=== PATIENT | male | born 1940 | race Caucasian/White ===

== ENCOUNTER 2018-02-17 22:32 | Inpatient (IN) ==
--- NOTE | 2018-02-17 23:01 | Emergency Department Note ---
Disposition Clinical Impression: Left ventricular thrombus Disposition: Admitted As Inpatient Condition: Good Time of Disposition: 23:48 Recheck wound or abnormal lab - General Chief Complaint: ED Recheck/Abnormal Lab/Rx Stated Complaint: blood clot left ventrical Time Seen by Provider: 02/17/18 22:34 Source: patient, EMS Mode of arrival: EMS Limitations: no limitations Nursing Notes Reviewed: Yes Vital Signs Reviewed: Yes - History of Present Illness HPI Narrative: 77-year-old male history of COPD on 2 liter home oxygen supplementation presents to emergency department with abnormal echocardiogram. Patient is from nursing facility. Patient is not aware of why the test was performed. The test was performed earlier today which showed filling defect in the left ventricle hui rn for thrombus. No history of any blood clots. Patient does not take any anticoagulants. Patient states he is at baseline short of breath. He has been experiencing a cough for the past week. Denies any chest pain. Denies any syncope, lightheadedness or fever. Patient has a history of aortic aneurysm where he had a recent ultrasound performed earlier this month with a 5.2 cm aneurysmal sac. - Related Data Home Medications Medication Instructions Recorded Confirmed Acetaminophen [Tylenol] 650 mg PO Q6H PRN 10/31/17 10/31/17 Aspirin [Lo-Dose Aspirin EC] 81 mg PO DAILY 10/31/17 10/31/17 Atorvastatin [Lipitor] 40 mg PO HS 10/31/17 10/31/17 Cholecalciferol (Vitamin D3) 2,000 unit PO DAILY 10/31/17 10/31/17 [Vitamin D] Finasteride [Proscar] 5 mg PO DAILY 10/31/17 10/31/17 Furosemide [Lasix] 20 mg PO DAILY 10/31/17 10/31/17 Gabapentin [Neurontin] 600 mg PO TID 10/31/17 10/31/17 GuaiFENesin/Dextromethorphan 1 each PO DAILY PRN 10/31/17 10/31/17 [Fenesin Dm Ir Tablet] HYDROcodone/Acet 5/325 mg [[place] 1 tab PO Q6H PRN 10/31/17 10/31/17 5-325 mg] Levothyroxine Sodium [Tirosint] 100 mcg PO DAILY 10/31/17 10/31/17 Magnesium Hydroxide [Milk of 400 mg PO DAILY PRN 10/31/17 10/31/17 Magnesia] Metoprolol Succinate [Toprol Xl] 25 mg PO DAILY 10/31/17 10/31/17 Polyvinyl Alcohol [Artificial 1 drop OP Q6H PRN 10/31/17 10/31/17 Tears] PrednisoLONE [Millipred] 5 mg PO Q48H 10/31/17 10/31/17 PrednisoLONE [Millipred] 10 mg PO Q48H 10/31/17 10/31/17 Primidone [Mysoline] 50 mg PO BID 10/31/17 10/31/17 Quetiapine Fumarate [SEROquel] 100 mg PO HS 10/31/17 10/31/17 Sennosides/Docusate Sodium [Senna 2 each PO BID 10/31/17 10/31/17 Plus] Tamsulosin HCl [Flomax] 0.4 mg PO HS 10/31/17 10/31/17 Umeclidinium [place] [Incruse 1 puff IH DAILY 10/31/17 10/31/17 Ellipta] Venlafaxine XR (24 HR) [Effexor XR] 187.5 mg PO DAILY 10/31/17 10/31/17 Allergies Allergy/AdvReac Type Severity Reaction Status Date / Time No Known Allergies Allergy Verified 10/31/17 22:02 All systems ED: reviewed and negative except as stated. Review of Systems: As Per HPI Constitutional: Denies: fever, chills ENT ED: Reports: congestion Cardiovascular: Denies: chest pain Respiratory: Reports: cough, dyspnea Gastrointestinal: Denies: abdominal pain, nausea, vomiting Genitourinary: Denies: dysuria Musculoskeletal: Denies: back pain, neck pain Integumentary: Denies: rash, abrasion Neurological: Denies: headache, weakness, numbness Psychiatric: Reports: anxiety. Denies: depression Endocrine: Denies: fatigue Past Medical History - Past Medical History Attestation: Yes The following information was validated with the patient. Source: patient Medical history: Reports: aortic aneurysm, arthritis, COPD, dementia, diabetes, hyperlipidemia, hypertension, thyroid disease, other Surgical history: Reports: other (Aortic aneurysm repair) Psychiatric history: Reports: anxiety, depression, schizophrenia - Social History Smoking Status: Current every day smoker Smokeless Tobacco Status: No (1 PPD) Alcohol use: Reports: occasionally Drug use: Reports: none Physical Exam - General Limitations: no limitations General appearance: alert, in no apparent distress, obese - Head Head exam: atraumatic, normocephalic, normal inspection - Eye Eye exam: Present: normal appearance, PERRL, EOMI - ENT ENT exam: normal exam, normal oropharynx, mucous membranes moist - Neck Neck exam: Present: normal inspection, full ROM, trachea midline - Chest Chest inspection: Present: normal inspection, symmetric chest wall rise - Respiratory Respiratory exam: Present: normal lung sounds bilaterally. Absent: respiratory distress, wheezes - Cardiovascular Cardiovascular exam: Present: regular rate, normal rhythm, normal heart sounds. Absent: systolic murmur, diastolic murmur - Abdominal Exam Abdominal exam: Present: soft (Obese), Non-Tender, normal bowel sounds. Absent: tenderness, distention, guarding, rebound, rigidity - Extremities Exam Extremities exam: Present: normal inspection, full ROM, normal capillary refill. Absent: tenderness, pedal edema, calf tenderness - Back Exam Back exam: Present: normal inspection, full ROM. Absent: tenderness, CVA tenderness (R), CVA tenderness (L) - Neurological Exam Neurological exam: Present: alert, oriented X3 - Psychiatric Psychiatric exam: Present: normal affect, normal mood - Skin Skin exam: Present: warm, dry, intact, normal color. Absent: rash, cyanosis, diaphoresis Course Course Narrative: Patient presents with concern for left ventricular thrombus. He reports baseline shortness of breath without any chest pain abdominal pain her back pain. He has known aortic aneurysm. Will check some basic labs including a chest x-ray given his recent cough. If he is not anemic will plan for anticoagulation and admission. Will also talk to the structural mill supervisor. EV/EV echocardiogram w enhance Impressions: LVEF 45-50%. Moderate left ventricular diastolic dysfunction. Mild concentric left ventricular hypertrophy. Moderate segmental left ventricular systolic dysfunction. There appears to be a filling defect in the left ventricular apex suspicious for a left ventricular thrombus. Normal right ventricular structure and function. Unable to estimate RVSP due to lack of TR jet. No significant valvular dysfunction. Findings communicated with patient's PCP at the [facility], Dr.Jeanette Palacio, for inpatient admission Left Ventricular Wall Motion: Rest Echo Findings The apical inferior, apical anterior, mid anterior, basal anterior, apical septal, mid inferior septal and mid anterior septal cox were hypokinetic. The apex wall was akinetic. All other wall segments showed normal motion. - Reevaluation(s) Reevaluation #1: Trop <0.03. No complaint of chest pain. Currently anticoagulated with Heparin. - Consultations Consultation #1: Spoke with on-call structural mill supervisor Dr. Sims who also read the echocardiogram, recommendation for anticoagulation and admission to the medicine service. His structural mill supervisor is also wear the patient as he made the echocardiogram interpretation. Patient otherwise remains hemodynamically stable at this time. No further orders at this time. Time: 23:07 Consultation #2: Spoke with on-call hospitalist [facility] to admit for possible left ventri cular thrombus. No further orders at this time. Patient will be initiated on heparin drip. He denies any G.I. bleed symptoms. At this time he remains hemodynamically stable without any complaints of chest pain, back pain or abdominal pain. Time: 00:33 Vital Signs Temperature 98.6 F 02/17/18 22:39 Pulse Rate 67 02/17/18 22:39 Respiratory Rate 22 02/17/18 22:39 Blood Pressure 195/88 02/17/18 22:39 O2 Sat by Pulse Oximetry 98 02/17/18 22:39 Temperature 98.6 F 02/17/18 22:39 Pulse Rate 73 02/18/18 00:58 Respiratory Rate 18 02/18/18 00:35 Blood Pressure 190/94 02/18/18 00:58 O2 Sat by Pulse Oximetry 97 02/18/18 00:39 Oxygen Delivery Oxygen Delivery Room Air Recheck wound or abnormal lab - MDM Narrative Medical decision making narrative: Patient was discussed with my attending physician who agrees with ED management and final disposition. They independently evaluated the patient. Please refer to their attestation to this encounter for additional information. This note was generated by [employer] voice recognition software and as a result grammatical or spelling errors may occur using this program. - Medical Records Medical records reviewed: Yes I reviewed the patient's medical records. - Lab Data Lab results reviewed: Yes I reviewed the patient's lab results. Result diagrams: 02/17/18 23:02 02/17/18 23:02 Lab Results 02/17/18 02/17/18 02/17/18 Range/Units 23:02 23:02 23:02 WBC 9.2 (4.3-11.1) K/mcL RBC 4.18 L (4.19-5.50) M/mcL Hgb 12.4 L (12.9-16.9) g/dL Hct 37.8 (37.5-50.1) % MCV 90.4 (83.0-100.0) fL MCH 29.7 (28.0-33.3) pg MCHC 32.8 (31.6-35.5) g/dL RDW 12.6 (11.5-14.5) % Plt Count 251 (140-400) K/mcL MPV 10.1 (9.4-12.4) fL Immature Gran % 0.3 (0-4) % Seg Neutrophils % 50.4 % Lymphocytes % 36.3 % Monocytes % 9.0 % Eosinophils % 3.6 % Basophils % 0.4 % Neutrophils # 4.7 (1.6-8.9) K/mcL Lymphocytes # 3.4 (0.6-4.6) K/mcL Monocytes # 0.8 (0.0-1.3) K/mcL Eosinophils # 0.3 (0.0-0.6) K/mcL Basophils # 0.0 (0.0-0.2) K/mcL PT 11.0 (9.4-12.1) Seconds INR 1.0 APTT 30.0 (26.0-36.0) Seconds Sodium 136 (136-145) mEq/L Potassium 3.9 (3.5-5.1) mEq/L Chloride 101 (98-107) mEq/L Carbon Dioxide 29 (23-29) mEq/L BUN 17 (8-23) mg/dL Creatinine 0.81 (0.70-1.30) mg/dL Est GFR ( Amer) > 60 (> 60) Est GFR (Non-Af Amer) > 60 (> 60) BUN/Creatinine Ratio 21 (6-26) Glucose 145 H (70-105) mg/dL Calculated Osmolality 286 (280-300) Calcium 9.1 (8.6-10.3) mg/dL Troponin I < 0.03 (< 0.04) ng/mL - Radiology Data Radiology results reviewed: Yes I reviewed the patient's radiology results. Chest X-Ray 02/17/18 22:50 IMPRESSION: Stable chest x-ray. No acute disease. D/ / Edgar Ochoa MD / Edgar Ochoa MD Interpreting Provider: Edgar Ochoa MD - EKG Data EKG attestation: Yes I reviewed and interpreted this EKG. EKG results narrative: EKG performed 2251 normal sinus rhythm 64 beats per minute, normal axis, good R wave progression, no ST elevation, T-wave inversion seen through the septal leads consistent with prior EKG 10/31/2017. No acute ischemic changes. Attestation Statement - Attestation Attestation: I, Esteban Tineo, examined this patient and my medical decision-making was reviewed with the NUT STEAMER/PA/Advanced Practice Nurse/Resident Physician. I agree with the documented findings, disposition and treatment plan as described except to the extent set forth below. 77-year-old male presents emergency Department with concerns of blood clot in the left ventricle. Patient states he had been having shortness of breath with exertion over the past few weeks, and outpatient echo of his heart was performed which showed possible blood clot in his left ventricle. He was sent to the emergency department for anticoagulant and admission to hospital for further evaluation. Patient initially had an elevated blood pressure however he attributed this to anxiety. It improved with observation emergency department. It did elevate again when discussing his symptoms and he was receiving IV. Initial troponin was negative. Patient was started on heparin in the emergency department. He felt comfortable with the plan for admission to hospital.
[2018-02-17 23:12] LABS: Basophils % 0.4 %; Eosinophils # 0.3 K/mcL (0.0-0.6); Eosinophils % 3.6 %; Hematocrit 37.8 % (37.5-50.1); Hemoglobin 12.4 g/dL (12.9-16.9); Immature Granulocytes % 0.3 % (0-4); Lymphocytes # 3.4 K/mcL (0.6-4.6); Lymphocytes % 36.3 %; Mean Corpuscular HGB Conc 32.8 g/dL (31.6-35.5); Mean Corpuscular Hemoglobin 29.7 pg (28.0-33.3); Mean Corpuscular Volume 90.4 fL (83.0-100.0); Mean Platelet Volume 10.1 fL (9.4-12.4); Monocytes # 0.8 K/mcL (0.0-1.3); Neutrophils # 4.7 K/mcL (1.6-8.9); Platelet Count 251 K/mcL (140-400); Red Blood Count 4.18 M/mcL (4.19-5.50); Red Cell Distribution Width 12.6 % (11.5-14.5); Segmented Neutrophils % 50.4 %
[2018-02-17 23:30] LABS: BUN/Creatinine Ratio 21 (6-26); Blood Urea Nitrogen 17 mg/dL (8-23); Calcium 9.1 mg/dL (8.6-10.3); Carbon Dioxide 29 mEq/L (23-29); Chloride 101 mEq/L (98-107); Glucose 145 mg/dL (70-105); Osmolality,Calculated 286 (280-300); Potassium 3.9 mEq/L (3.5-5.1); Sodium 136 mEq/L (136-145); eGFR For Non-African Americans > 60 (> 60)
[2018-02-17] MEDS ORDERED: Heparin 25,000 UNIT/500 ML D5W 25,000 UNIT/500 ML BAG IVC SCH (23:45)
[2018-02-17] MEDS ORDERED: *HR* Heparin 5,000 UNIT/ML VIAL IVP PRN ×2 (23:46)
[2018-02-17] MEDS ORDERED: *HR* Heparin 5,000 UNIT/ML VIAL IVP ONE (23:46)
--- NOTE | 2018-02-18 00:41 | Internal Med History&Physical ---
<Tristan Momin - Last Filed: 02/18/18 02:10> Date of Encounter: 02/18/18 Time of Encounter: 02:05 Internal Medicine - H&P: HPI Chief complaint: Possible LV thrombus on echo History of present illness: Mr. Ferraro is a 77 year old male here for abnomral echocardiogram showing potential LV thrombus with history of AAA, COPD, HTN, hypothyroidism, lumbar spondylosis. Patient has been having increasing SOB and was was given an echocardiogram at [place] yesterday which showed a filling defect in LV that is suspected to be a thrombus. Patient denies new onset CP, palpitations, dyspnea, leg pain. He also denies fever, N/V, malaise, night sweats, syncope, dizziness abdominal pain, changes in urination or stooling. Patient has smoked for 70 years at approximately 1 PPD. He had US one motnh ago showing a 5.2 cm aneurysmal sac. At ED his heart rate was elevated at 190/100 which is higher than his previous visits at 150/90s. EKG shows no acute changes from previous recordings. Troponins were negative x 1. Past Med Surg Social Fam HX - Past Medical History Medical history: aortic aneurysm, arthritis, COPD, dementia, diabetes, hyperlipidemia, hypertension, thyroid disease, other Additional medical history: Parkinson's Psychiatric history: anxiety, depression, schizophrenia - Past Surgical History Surgical History: other (Aortic aneurysm repair) Additional surgical history: AAA REPAIR - Social History Smoking Status: Current every day smoker Smokeless Tobacco Status: No (1 PPD) Alcohol use: occasionally Drug use: none Internal Medicine - H&P: Meds Acetaminophen [Tylenol] 650 mg PO Q6H PRN 10/31/17 [History] Aspirin [Lo-Dose Aspirin EC] 81 mg PO DAILY 10/31/17 [History] Atorvastatin [Lipitor] 40 mg PO HS 10/31/17 [History] Cholecalciferol (Vitamin D3) [Vitamin D] 2,000 unit PO DAILY 10/31/17 [History] Finasteride [Proscar] 5 mg PO DAILY 10/31/17 [History] Furosemide [Lasix] 20 mg PO DAILY 10/31/17 [History] Gabapentin [Neurontin] 600 mg PO TID 10/31/17 [History] GuaiFENesin/Dextromethorphan [Fenesin Dm Ir Tablet] 1 each PO DAILY PRN 10/31/17 [History] HYDROcodone/Acet 5/325 mg [[place] 5-325 mg] 1 tab PO Q6H PRN 10/31/17 [History] Levothyroxine Sodium [Tirosint] 100 mcg PO DAILY 10/31/17 [History] Magnesium Hydroxide [Milk of Magnesia] 400 mg PO DAILY PRN 10/31/17 [History] Metoprolol Succinate [Toprol Xl] 25 mg PO DAILY 10/31/17 [History] Polyvinyl Alcohol [Artificial Tears] 1 drop OP Q6H PRN 10/31/17 [History] PrednisoLONE [Millipred] 5 mg PO Q48H 10/31/17 [History] PrednisoLONE [Millipred] 10 mg PO Q48H 10/31/17 [History] Quetiapine Fumarate [SEROquel] 100 mg PO HS 10/31/17 [History] RX: Primidone [Mysoline] 50 mg PO BID 10/31/17 [History] Sennosides/Docusate Sodium [Senna Plus] 2 each PO BID 10/31/17 [History] Tamsulosin HCl [Flomax] 0.4 mg PO HS 10/31/17 [History] Umeclidinium [place] [Incruse Ellipta] 1 puff IH DAILY 10/31/17 [History] Venlafaxine XR (24 HR) [Effexor XR] 187.5 mg PO DAILY 10/31/17 [History] Allergy/AdvReac Type Severity Reaction Status Date / Time No Known Allergies Allergy Verified 10/31/17 22:02 All Systems PM: A 10-system review of systems was performed and is negative for pertinent findin gs except as documented above in the HPI. - Constitutional Vitals: Temp Pulse Resp BP Pulse Ox 98.6 F 74 18 206/101 97 02/17/18 22:39 02/18/18 00:35 02/18/18 00:35 02/18/18 00:35 02/18/18 00:39 General appearance: Present: A&O X 3, pleasant, no acute distress, answers questions appropriately Exam: . - Head Head exam: Present: atraumatic, normal inspection - Eye Eye exam: Present: EOMI, normal appearance. Absent: conjuntiva pink - Neck Neck exam general surgery: Present: supple, trachea midline - Respiratory Respiratory exam: Present: decreased breath sounds, wheezes. Absent: respiratory distress - Cardiovascular Cardiovascular exam: Present: RRR, +S1, +S2 Additional comments: Irregular beat on EKG noted - GI/Abdominal GI/Abdominal exam: Present: distended, normal bowel sounds. Absent: mass, tenderness - Extremities Exam Extremities exam: Present: normal capillary refill. Absent: calf tenderness, pedal edema, tenderness - Back Exam Back exam: Absent: CVA tenderness (L), CVA tenderness (R) - Neurological Exam Neurological exam: Present: alert, oriented X3. Absent: no focal deficits - Psychiatric Psychiatric exam: Present: normal affect - Skin Skin exam: Present: dry, intact, normal color, warm. Absent: diaphoretic Internal Med - H&P Results - Labs CBC & Chem 7: 02/17/18 23:02 02/17/18 23:02 Labs: Short CBC 02/17/18 Range/Units 23:02 WBC 9.2 (4.3-11.1) K/mcL Hgb 12.4 L (12.9-16.9) g/dL Hct 37.8 (37.5-50.1) % Plt Count 251 (140-400) K/mcL Neutrophils # 4.7 (1.6-8.9) K/mcL BMP 02/17/18 23:02 Sodium 136 Potassium 3.9 Chloride 101 Carbon Dioxide 29 BUN 17 Creatinine 0.81 Glucose 145 H Calcium 9.1 - Impressions ITS Impressions Chest X-Ray 02/17/18 22:50 IMPRESSION: Stable chest x-ray. No acute disease. D/ / Edgar Ochoa MD / Edgar Ochoa MD Interpreting Provider: Edgar Ochoa MD - Assessment and plan (1) DVT prophylaxis Current Visit: No Status: Acute Assessment and plan: On heparin drip (2) Left ventricular thrombus Current Visit: Yes Status: Acute Assessment and plan: 77 YO M presenting with filling defect in LV on echo - suspected LV thrombus - Anticoagulation started - heparin drip - Consult cardiology - Continued home meds Patient had 190/100 BP at ED. Normally in 150/90s. No signs of end organ damage including headache, vision changes, back pain, abdominal pain, new onset CP - Give hydralazine now - Home BP meds started tomorrow morning: metoprolol 25 and furosomide 20 - Time Spent With Patient Total time spent is greater than 50% in coordination of care (as documented) at patient's floor/unit and/or counseling patient: Renetta Martin - Last Filed: 02/18/18 02:31> Date of Encounter: 02/18/18 Internal Medicine - H&P: HPI History of present illness: Mr. Ferraro is a 77 year old male All Systems PM: A 10-system review of systems was performed and is negative for pertinent findings except as documented above in the HPI. - Constitutional Vitals: Temp Pulse Resp BP Pulse Ox 98.6 F 73 18 190/94 97 02/17/18 22:39 02/18/18 00:58 02/18/18 00:35 02/18/18 00:58 02/18/18 00:39 Internal Med - H&P Results - Labs CBC & Chem 7: 02/17/18 23:02 02/17/18 23:02 Labs: Short CBC 02/17/18 Range/Units 23:02 WBC 9.2 (4.3-11.1) K/mcL Hgb 12.4 L (12.9-16.9) g/dL Hct 37.8 (37.5-50.1) % Plt Count 251 (140-400) K/mcL Neutrophils # 4.7 (1.6-8.9) K/mcL BMP 02/17/18 23:02 Sodium 136 Potassium 3.9 Chloride 101 Carbon Dioxide 29 BUN 17 Creatinine 0.81 Glucose 145 H Calcium 9.1 Cardiac Enzymes 02/17/18 Range/Units 23:02 Troponin I < 0.03 (< 0.04) ng/mL - Impressions ITS Impressions Chest X-Ray 02/17/18 22:50 IMPRESSION: Stable chest x-ray. No acute disease. D/ / Edgar Ochoa MD / Edgar Ochoa MD Interpreting Provider: Edgar Ochoa MD - Assessment and plan (1) DVT prophylaxis Current Visit: No Status: Acute (2) Left ventricular thrombus Current Visit: Yes Status: Acute - Time Spent With Patient Total time spent is greater than 50% in coordination of care (as documented) at patient's floor/unit and/or counseling patient: - Attending Attestation I performed a history and physical exam of the patient and discussed management with the resident. I reviewed the resident's note and agree with the documented findings and plan of care. Ricardo Ferraro is a 77 year old man with HTN and an abdominal aortic aneurysm, chronic smoker with COPD and on 2L O2, current [place] resident who was evaluated with an outpatient echo recently for complaints of shortness of breath over the past week. It was read today and found to have signs concerning for an LV thrombus and was referred for admission through the ER. At this time he has no complaints. He denies chest pain and shortness of breath. He feels comfortable. Physical exam remarkable for a well- developed man lying comfortably in bed in NAD. Psych affect appropriate. Normal s1/s2. Ctabl. Abdomen soft and non-tender. Labs reviewed and grossly un remarkable. Will admit to inpatient for LV thrombus. Start heparin gtt. Resume home medications. Cardiology consultation advised. BP control warranted. Family history reviewed and found non-contributory. GLENN BLANCA.
[2018-02-18 00:59] LABS: Troponin I < 0.03 ng/mL (< 0.04)
[2018-02-18] MEDS ORDERED: Ipratropium/Albuterol Neb 3 ML IH PRN (01:34)
[2018-02-18] MEDS ORDERED: Naloxone 0.4 MG/ML INJ IVP PRN (01:37)
[2018-02-18] MEDS ORDERED: Dextrose Gel 15 GM/37.5 ML TUBE PO PRN ×2 (01:41)
[2018-02-18] MEDS ORDERED: *HR* Dextrose 50 % in Water (Syg) 50 ML SYRINGE IVP PRN (01:41)
[2018-02-18] MEDS ORDERED: D5% in Water 1,000 ML IVC PRN (01:41)
[2018-02-18] MEDS: Insulin LISPRO 300 UNITS/3 ML VIAL SQ SCH ×2 (06:23→12:13)
--- NOTE | 2018-02-18 08:26 | Cardiology Consult Note ---
Addendum entered and electronically signed by Jeffrey Sarmiento MD 02/18/18 15:16: I examined this patient and my medical decision-making was reviewed with the Resident Physician. I agree with the documented findings, disposition and treatment plan as described except to the extent set forth below. A/P: LV thrombus Systolic CHF Stable angina Recommend coumadin INR 2-3, can be placed on renally dosed fully therapeutic lovenox to transition (instead of IV heparin). Cath once patient LV thrombus treated for 1month+ given no ACS at this point. Fu in clinic with Dr. Kline. Thank you for the consult, Jeffrey Sarmiento MD [facility] Original Note: Date of Encounter: 02/18/18 Time of Encounter: 09:43 Assessment and Plan (1) Left ventricular thrombus Current Visit: Yes Status: Acute Echocardiogram 02/17/2018 LVEF 45-50%. Moderate left ventricular diastolic dysfunction. Mild concentric left ventricular hypertrophy. Moderate segmental left ventricular systolic dysfunction. There appears to be a filling defect in the left ventricular apex suspicious for a left ventricular thrombus. Normal right ventricular structure and function. Unable to estimate RVSP due to lack of TR jet. No significant valvular dysfunction. LV apex hypokenisis patient was started on heparin drip on admission. plan: bridge to coumadin with PT/INR goal of 2-3. Patient will follow up with ca rdiology outpatient in one month for reassesment of LV thrombus. Currently not in ACS will consider LHC once LV thrombus is treated. (2) Abnormal ECG Current Visit: Yes Status: Acute ECG showed sinus rhythm rate [address] depression in V4,V5,V6 with t-wave inversion on 01/22/2018 ECG on 10/31/[address]ressions in V4,V5,V6 and t-wave inversions as well. troponin was <0.03. patient is not having active chest pain not in ACS plan: continue aspirin, statin, bblocker. Discussion w patient/family: The assessment and plan as outlined above was discussed with the patient and/or family members who expressed understanding and agreement. All questions were answered. Thank you for involving us in the care of your patient. Please call with any questions. History of Present Illness Consult date: 02/18/18 Consult reason: LV thrombus Chief complaint: LV thormbus History of present illness: Mr. Ferraro is a 77 year old male hx of AAA, COPD, DM, HLD, HTN presents here for abnormal echocardiogram showing potential LV thormbus. Patient follows [place] [facility] and was seen to have abnormal EKG beginning of january 2018. EKG showed sinus rhythm rate [address] depression in V4,V5,V6 with twave inversion. Patient reports having intermittent chest pain at distal sternum that last for 15 min without radiation associated with sob, diaphoresis and improves with acti vity. He has had this chest pain about once a month for past several months. He is on 3L O2 at home and has 70year pack history. He denies Chest pain, sob, diaphoresis, palpitations, blurry vision, syncope, LE pain today. Past Med Surg Social Fam HX - Past Medical History Medical history: aortic aneurysm, arthritis, COPD, dementia, diabetes, hyperlipidemia, hypertension, thyroid disease, other Additional medical history: Parkinson's Psychiatric history: anxiety, depression, schizophrenia - Past Surgical History Surgical History: other (Aortic aneurysm repair) Additional surgical history: AAA REPAIR - Social History Smoking Status: Current every day smoker Smokeless Tobacco Status: No (1 PPD) Alcohol use: occasionally Drug use: none Medications and Allergies Aspirin [Lo-Dose Aspirin EC] 81 mg PO DAILY 10/31/17 [History] Atorvastatin [Lipitor] 40 mg PO HS 10/31/17 [History] Finasteride [Proscar] 5 mg PO HS 10/31/17 [History] Furosemide [Lasix] 20 mg PO DAILY 10/31/17 [History] Gabapentin [Neurontin] 600 mg PO TID 10/31/17 [History] HYDROcodone/Acet 5/325 mg [[place] 5-325 mg] 1 tab PO Q6H PRN 10/31/17 [History] Levothyroxine Sodium [Tirosint] 100 mcg PO DAILY 10/31/17 [History] Metoprolol Succinate [Toprol Xl] 25 mg PO DAILY 10/31/17 [History] PrednisoLONE [Millipred] 1.25 mg PO DAILY 10/31/17 [History] Primidone [Mysoline] 50 mg PO BID 10/31/17 [History] Sennosides/Docusate Sodium [Senna Plus] 2 each PO BID 10/31/17 [History] Tamsulosin HCl [Flomax] 0.4 mg PO HS 10/31/17 [History] Umeclidinium [place] [Incruse Ellipta] 1 puff IH DAILY 10/31/17 [History] Venlafaxine XR (24 HR) [Effexor XR] 187.5 mg PO DAILY 10/31/17 [History] Albuterol Neb [Proventil Neb] 2.5 mg IH Q4HR PRN 02/18/18 [History] Quetiapine Fumarate [Seroquel Xr] 50 mg PO HS 02/18/18 [History] metFORMIN [Glucophage] 500 mg PO BIDWM 02/18/18 [History] Allergy/AdvReac Type Severity Reaction Status Date / Time No Known Allergies Allergy Verified 02/18/18 11:05 All Systems Review: The remainder of the systems were reviewed and are negative Physical Examination Vital Signs, Last 4 Hours Temp Pulse Resp BP Pulse Ox 02/18/18 06:59 98.0 F 68 18 172/68 99 General: Conversant, No Apparent Distress HEENT: Atraumatic, Normocephaly, Mucus Membranes Moist Neck: No JVD, Normal carotid pulses Cardiac: Reg Rate and Rhythm, Normal S1 and S2, No Murmur Lungs: Normal Breath Sounds, No Wheeze, Rales, Rhonchi Neuro: Alert and responsive, No focal deficits noted Abdomen: Soft, Non-Tender Skin: No rashes noted on visualized skin Musculoskeletal: No Chest Wall Tenderness Extremities: No Clubbing, No Cyanosis, No Edema, Normal Pulses Results 02/17/18 23:02 02/17/18 23:02 Lab Results 02/17/18 02/17/18 02/17/18 23:02 23:02 23:02 WBC 9.2 Hgb 12.4 L Hct 37.8 Plt Count 251 INR 1.0 APTT 30.0 Sodium 136 Potassium 3.9 Chloride 101 Carbon Dioxide 29 BUN 17 Creatinine 0.81 Glucose 145 H Calcium 9.1 Troponin I < 0.03 Consult Discharge Plan - Plan Referrals: NONE,PCP [Primary Care Provider] -
[2018-02-18] MEDS ORDERED: Metoprolol XL (24 HR) Succ 25 MG TAB.ER.24H PO SCH (09:00)
[2018-02-18] MEDS ORDERED: Venlafaxine XR (24 HR) 150 MG CAP.ER.24H PO SCH (09:00)
[2018-02-18] MEDS ORDERED: Primidone 50 MG TABLET PO SCH (09:00)
[2018-02-18] MEDS ORDERED: Aspirin 81 MG TAB.CHEW PO SCH (10:00)
--- NOTE | 2018-02-18 10:55 | Internal Med Progress Note ---
Hospitalist Progress Note - Encounter Date of Encounter: 02/18/18 Time of Encounter: 10:53 - Subjective Interval History: Sinning and bedside today. Continues to remain chest pain-free, no shortness of breath. No acute changes overnight. No additional complaints at this time. - Exam Vitals: Temp Pulse Resp BP Pulse Ox 98.0 F 68 18 172/68 99 02/18/18 06:59 02/18/18 06:59 02/18/18 06:59 02/18/18 06:59 02/18/18 06:59 Exam: PHYSICAL EXAMINATION: GENERAL: Elderly male, NAD, a and O 3 HEENT: Head is normocephalic and atraumatic. EOMI, PERRLA NECK: Supple. No carotid bruits. No lymphadenopathy or thyromegaly. LUNGS: Clear to auscultation B/L AP and L. HEART: Regular rate and rhythm, S1, S2 without murmur rubs or gallops. ABDOMEN: Soft, nontender, and nondistended. Positive bowel sounds. No hepatosplenomegaly was noted. EXTREMITIES: Without any cyanosis, clubbing, rash, lesions or edema. NEUROLOGIC: Cranial nerves II through XII are grossly intact. SKIN: No ulceration or induration present. - Assessment and Plan (1) Left ventricular thrombus Current Visit: Yes Status: Acute Assessment and Plan: Patient has been having increasing shortness of breath Echocardiogram yesterday revealing filling defect and LV suspected LV thrombus Currently on heparin drip continue cardiac medications Cardiology seeing in consultation Echocardiogram 02/17/2018 LVEF 45-50%. Moderate left ventricular diastolic dysfunction. Mild concentric left ventricular hypertrophy. Moderate segmental left ventricular systolic dysfunction. There appears to be a filling defect in the left ventricular apex suspicious for a left ventricular thrombus. Normal right ventricular structure and function. Unable to estimate RVSP due to lack of TR jet. No significant valvular dysfunction. LV apex hypokenisis patient was started on heparin drip on admission. (2) DVT prophylaxis Current Visit: No Status: Acute Assessment and Plan: Continue heparin drip - Time Spent with Patient Total time spent is greater than 50% in coordination of care (as documented) at patient's floor/unit and/or counseling patient: less than 15 minutes Plan of Care Discussed with: patient Internal Medicine: Result - Labs CBC & Chem 7: 02/17/18 23:02 02/17/18 23:02 Labs: Short CBC 02/17/18 Range/Units 23:02 WBC 9.2 (4.3-11.1) K/mcL Hgb 12.4 L (12.9-16.9) g/dL Hct 37.8 (37.5-50.1) % Plt Count 251 (140-400) K/mcL Neutrophils # 4.7 (1.6-8.9) K/mcL BMP 02/17/18 23:02 Sodium 136 Potassium 3.9 Chloride 101 Carbon Dioxide 29 BUN 17 Creatinine 0.81 Glucose 145 H Calcium 9.1 Cardiac Enzymes 02/17/18 Range/Units 23:02 Troponin I < 0.03 (< 0.04) ng/mL - ABG Interpretation ABG results: PT/INR, D-dimer PT 11.0 Seconds (9.4-12.1) 02/17/18 23:02 - Impressions Impressions Chest X-Ray 02/17/18 22:50 IMPRESSION: Stable chest x-ray. No acute disease. D/ / Edgar Ochoa MD / Edgar Ochoa MD Interpreting Provider: Edgar Ochoa MD Consult Discharge Plan - Plan Referrals: NONE,PCP [Primary Care Provider] -
[2018-02-18 12:03] VITALS: BP 184/75
[2018-02-18] MEDS: Gabapentin 300 MG CAPSULE PO SCH ×2 (12:11→14:31)
--- NOTE | 2018-02-18 14:56 | Discharge Summary ---
- NOTES TO OUTPATIENT PROVIDER Notes to Outpatient Provider: Found to have left ventricular thrombus. Discharged with prescription for weight based lovenox to coumadin bridge. He is to have f/u with cardiology outpatient. Scheduled per cardiology Orders not resulted at time of discharge: Pending orders 02/18/18 15:30 Heparin anti-factor XA UFH [COAG] Timed 02/19/18 04:00 PT/INR [Prothrombin Time INR] [COAG] AM 0400 02/20/18 04:00 PT/INR [Prothrombin Time INR] [COAG] AM 0400 02/21/18 04:00 PT/INR [Prothrombin Time INR] [COAG] AM 0400 02/22/18 04:00 PT/INR [Prothrombin Time INR] [COAG] AM 0400 Date of Encounter: 02/18/18 Time of Encounter: 15:05 - Discharge Diagnosis (1) Left ventricular thrombus Priority: Primary Status: Acute Assessment and Plan: Patient has been having increasing shortness of breath Echocardiogram yesterday revealing filling defect and LV suspected LV thrombus Currently on heparin drip continue cardiac medications Cardiology seeing in consultation--recommendations are to discharge with Lovenox Coumadin bridge and follow-up with Coumadin clinic. He is discharging with a 3 day follow-up for INR monitoring. He is to have outpatient follow-up with [place] [facility]. All information is being sent to [facility] to ensure follow-up. Echocardiogram 02/17/2018 LVEF 45-50%. Moderate left ventricular diastolic dysfunction. Mild concentric left ventricular hypertrophy. Moderate segmental left ventricular systolic dysfunction. There appears to be a filling defect in the left ventricular apex suspicious for a left ventricular thrombus. Normal right ventricular structure and function. Unable to estimate RVSP due to lack of TR jet. No significant valvular dysfunction. LV apex hypokenisis patient was started on heparin drip on admission. (2) DVT prophylaxis Priority: Secondary Status: Acute Hospital course: Mr. Ferraro is a 77 year old male Found to have left ventricular thrombus. Cardiology is seeing during stay for consultation. Echocardiogram obtained and showing LVEF 40-50%, moderate LV diastolic dysfunction, mild LV hypertrophy, moderate segmental LV systolic dysfunction and a left ventricular filling defect specialist for LV thrombus. Recommendations from cardiology consultation are to discharge patient with prescription for weight based lovenox to coumadin bridge. He is to have f/u with cardiology outpatient. Scheduled per cardiology Discharge discussed with: patient, nurse - Time Spent with Patient Total time spent providing and/or coordinating discharge services: Less than 30 minutes - Discharge Medications Prescriptions: Enoxaparin [Lovenox] 110 mg SQ Q12HR 5 Days #10 syr HYDROcodone/Acet 5/325 mg [[place] 5-325 mg] 1 tab PO Q6H PRN 1 Days #4 tablet PRN Reason: Pain Warfarin [Coumadin] 5 mg PO 1800 10 Days #10 tablet Home Medications: Aspirin [Lo-Dose Aspirin EC] 81 mg PO DAILY 10/31/17 [History] Atorvastatin [Lipitor] 40 mg PO HS 10/31/17 [History] Finasteride [Proscar] 5 mg PO HS 10/31/17 [History] Furosemide [Lasix] 20 mg PO DAILY 10/31/17 [History] Gabapentin [Neurontin] 600 mg PO TID 10/31/17 [History] Levothyroxine Sodium [Tirosint] 100 mcg PO DAILY 10/31/17 [History] Metoprolol Succinate [Toprol Xl] 25 mg PO DAILY 10/31/17 [History] PrednisoLONE [Millipred] 1.25 mg PO DAILY 10/31/17 [History] Primidone [Mysoline] 50 mg PO BID 10/31/17 [History] Sennosides/Docusate Sodium [Senna Plus] 2 each PO BID 10/31/17 [History] Tamsulosin HCl [Flomax] 0.4 mg PO HS 10/31/17 [History] Umeclidinium [place] [Incruse Ellipta] 1 puff IH DAILY 10/31/17 [History] Venlafaxine XR (24 HR) [Effexor XR] 187.5 mg PO DAILY 10/31/17 [History] Albuterol Neb [Proventil Neb] 2.5 mg IH Q4HR PRN 02/18/18 [History] Enoxaparin [Lovenox] 110 mg SQ Q12HR 5 Days #10 syr 02/18/18 [Rx] HYDROcodone/Acet 5/325 mg [[place] 5-325 mg] 1 tab PO Q6H PRN 1 Days #4 tablet 02/18/18 [Rx] Quetiapine Fumarate [Seroquel Xr] 50 mg PO HS 02/18/18 [History] Warfarin [Coumadin] 5 mg PO 1800 10 Days #10 tablet 02/18/18 [Rx] metFORMIN [Glucophage] 500 mg PO BIDWM 02/18/18 [History] Allergies/Adverse Reactions: Allergy/AdvReac Type Severity Reaction Status Date / Time No Known Allergies Allergy Verified 02/18/18 11:05 Date of admission: 02/18/18 01:17 Primary care physician: PCP NONE Consults: 02/17/18 23:07 Consult to Cardiology [CONS] Stat Comment: Consulting Provider: Cardiology Nila Reason for Consult: possible left ventricular thrombus, anticoagulation Time Notified: 23:07 Call Completed: Yes Discharging clinician: Clayton Chavez Anticipated date of discharge: 02/18/18 - Constitutional Vitals: Temp Pulse Resp BP Pulse Ox 98.2 F 78 16 184/75 93 02/18/18 12:02 02/18/18 12:02 02/18/18 12:02 02/18/18 12:02 02/18/18 12:02 General appearance: Present: A&O X 3, pleasant, no acute distress, answers questions appropriately Exam: PHYSICAL EXAMINATION: GENERAL: Elderly male, NAD, a and O 3 HEENT: Head is normocephalic and atraumatic. EOMI, PERRLA NECK: Supple. No carotid bruits. No lymphadenopathy or thyromegaly. LUNGS: Clear to auscultation B/L AP and L. HEART: Regular rate and rhythm, S1, S2 without murmur rubs or gallops. ABDOMEN: Soft, nontender, and nondistended. Positive bowel sounds. No hepatosplenomegaly was noted. EXTREMITIES: Without any cyanosis, clubbing, rash, lesions or edema. NEUROLOGIC: Cranial nerves II through XII are grossly intact. SKIN: No ulceration or induration present. - Patient Status Disposition: Transfer SNF Condition: Good Functional capacity at discharge: independent ambulation Overall status at discharge: patient is progressing back to baseline - Ambulatory Orders Ambulatory Orders: Prothrombin Time INR [COAG] Time Frame: 3 Days, Facility: [facility], Location: Lab - Discharge Instructions Instructions: Chronic Hypertension (DC) Follow Up With: NONE,PCP [Primary Care Provider] - - Diet and Activity Activity: increase activity as tolerated, resume usual activities as tolerated Diet: diabetic diet, low fat, low cholesterol, low salt diet
--- NOTE | 2018-02-18 15:08 | Physician Discharge Referral ---
Addendum entered and electronically signed by Clayton Chavez 02/19/18 08:37: Original Note: ExtendedCare Referral Info Transfer To: [facility] Provider in Charge after Transfer: PCP Institutional Level of Care: Skilled - Diagnosis (1) Left ventricular thrombus Priority: Primary Status: Acute (2) DVT prophylaxis Priority: Secondary Status: Acute Prognosis: Good Aware of Diagnosis: Patient Aware of Prognosis: Patient - Transfer Medications Prescriptions: Enoxaparin [Lovenox] 110 mg SQ Q12HR 5 Days #10 syr HYDROcodone/Acet 5/325 mg [[place] 5-325 mg] 1 tab PO Q6H PRN 1 Days #4 tablet PRN Reason: Pain Warfarin [Coumadin] 5 mg PO 1800 10 Days #10 tablet Home Medications: Aspirin [Lo-Dose Aspirin EC] 81 mg PO DAILY 10/31/17 [History] Atorvastatin [Lipitor] 40 mg PO HS 10/31/17 [History] Finasteride [Proscar] 5 mg PO HS 10/31/17 [History] Furosemide [Lasix] 20 mg PO DAILY 10/31/17 [History] Gabapentin [Neurontin] 600 mg PO TID 10/31/17 [History] Levothyroxine Sodium [Tirosint] 100 mcg PO DAILY 10/31/17 [History] Metoprolol Succinate [Toprol Xl] 25 mg PO DAILY 10/31/17 [History] PrednisoLONE [Millipred] 1.25 mg PO DAILY 10/31/17 [History] Primidone [Mysoline] 50 mg PO BID 10/31/17 [History] Sennosides/Docusate Sodium [Senna Plus] 2 each PO BID 10/31/17 [History] Tamsulosin HCl [Flomax] 0.4 mg PO HS 10/31/17 [History] Umeclidinium [place] [Incruse Ellipta] 1 puff IH DAILY 10/31/17 [History] Venlafaxine XR (24 HR) [Effexor XR] 187.5 mg PO DAILY 10/31/17 [History] Albuterol Neb [Proventil Neb] 2.5 mg IH Q4HR PRN 02/18/18 [History] Enoxaparin [Lovenox] 110 mg SQ Q12HR 5 Days #10 syr 02/18/18 [Rx] HYDROcodone/Acet 5/325 mg [[place] 5-325 mg] 1 tab PO Q6H PRN 1 Days #4 tablet 02/18/18 [Rx] Quetiapine Fumarate [Seroquel Xr] 50 mg PO HS 02/18/18 [History] Warfarin [Coumadin] 5 mg PO 1800 10 Days #10 tablet 02/18/18 [Rx] metFORMIN [Glucophage] 500 mg PO BIDWM 02/18/18 [History] Allergies/Adverse Reactions: Allergy/AdvReac Type Severity Reaction Status Date / Time No Known Allergies Allergy Verified 02/18/18 11:05 - Respiratory Orders Smoking Cessation: Smoking cessation has been advised. For more information, call the [place] Tobacco Quit Line at 2-827-MVJN-NOW. - Rehabiliation Orders Rehab Potential: Good Rehab Orders: ROM Exercises, Evaluation for Physical Therapy, Evaluation for Occupational Therapy - Diet Orders No Added Salt (CYNTHIA), No Concentrated Sweets, Cardiac CERTIFICATION: I certify that the transfer of the above named patient to an Extended Care Facility is necessary for the continuing treatment of the diagnosis listed. The above information is true and accurate reflection of patient's current condition. Confidential - Redisclosure prohibited without a patient's written consent.
[2018-02-18] MEDS ORDERED: *HR* Enoxaparin 100 MG/ML SYRINGE SQ ONE (15:23)
[2018-02-18] MEDS ORDERED: *HR* Warfarin 2.5 MG TABLET PO ONE (15:30)
[2018-02-18] MEDS ORDERED: Warfarin perPT PO PRN (18:00)
--- NOTE | 2018-02-19 07:31 | Electrocardiograph Report ---
[employer] Test Date: 2018-02-17 Pat Name: Ricardo Ferraro Department: [id number] Room: 3B14 Gender: M Pl Sql Programmer: : [id number] Requested By: Pancho Brice Order Number: [id number] Reading MD: John Richard Measurements Intervals Dora Rate: 64 P: 66 MA: 169 QRS: 43 QRSD: 110 T: 180 QT: 426 QTc: 440 Interpretive Statements Sinus Rhythm. Electronically Signed On 02-19-2018 7:29:07 EST by John Richard
== END 2018-02-18 15:52 | DRG 303 ==
LOC: 3BNU 22:32 → EMEROOARM 22:32 → SUATTDRO 02-18 01:17 → 3BNU 02-18 01:18
PROVIDERS: ADMIT Internal Medicine; ATTEND Nurse Practitioner

== ENCOUNTER 2021-05-09 18:56 | Inpatient (IN) ==
[2021-05-09] MEDS ORDERED: Melatonin 3 MG TABLET PO PRN (20:45)
[2021-05-09] MEDS ORDERED: Ondansetron ODT 4 MG TAB.RAPDIS SL PRN (20:45)
[2021-05-09] MEDS ORDERED: Acetaminophen 325 MG TABLET PO PRN (20:45)
[2021-05-09] MEDS ORDERED: Naloxone 0.4 MG/ML INJ IVP PRN (20:45)
[2021-05-09] MEDS ORDERED: MOM Conc 10 ML UD.LIQ PO PRN (20:45)
[2021-05-09] MEDS ORDERED: *HR* HYDROcodone/Acet 5/325 mg TABLET PO PRN (20:45)
[2021-05-09 22:08] LABS: Hematocrit 27.3 % (37.5-50.1); Hemoglobin 8.5 g/dL (12.9-16.9); Mean Corpuscular HGB Conc 31.1 g/dL (31.6-35.5); Mean Corpuscular Hemoglobin 29.9 pg (28.0-33.3); Mean Corpuscular Volume 96.1 fL (83.0-100.0); Mean Platelet Volume 10.2 fL (9.4-12.4); Platelet Count 281 K/mcL (140-400); Red Blood Count 2.84 M/mcL (4.19-5.50); Red Cell Distribution Width 13.8 % (11.5-14.5); White Blood Count 8.9 K/mcL (4.3-11.1)
[2021-05-10 03:02] LABS: Basophils # 0.1 K/mcL (0.0-0.2); Basophils % 0.7 %; Eosinophils # 0.4 K/mcL (0.0-0.6); Eosinophils % 4.3 %; Hemoglobin 7.9 g/dL (12.9-16.9); Immature Granulocytes % 0.2 % (0-4); Lymphocytes # 2.4 K/mcL (0.6-4.6); Lymphocytes % 25.1 %; Mean Corpuscular HGB Conc 30.4 g/dL (31.6-35.5); Mean Corpuscular Volume 95.6 fL (83.0-100.0); Monocytes # 0.9 K/mcL (0.0-1.3); Monocytes % 9.2 %; Neutrophils # 5.7 K/mcL (1.6-8.9); Platelet Count 277 K/mcL (140-400); Red Blood Count 2.72 M/mcL (4.19-5.50); Red Cell Distribution Width 13.9 % (11.5-14.5); Segmented Neutrophils % 60.5 %; White Blood Count 9.4 K/mcL (4.3-11.1)
[2021-05-10 03:19] LABS: Calcium 8.2 mg/dL (8.6-10.3); Magnesium 1.9 mg/dL (1.6-2.6); Phosphorous 4.2 mg/dL (2.7-4.5); Potassium 4.4 mEq/L (3.5-5.1)
[2021-05-10 05:14] LABS: Hematocrit 28.4 % (37.5-50.1); Hemoglobin 8.8 g/dL (12.9-16.9); Mean Corpuscular Hemoglobin 29.9 pg (28.0-33.3); Mean Corpuscular Volume 96.6 fL (83.0-100.0); Mean Platelet Volume 10.4 fL (9.4-12.4); Platelet Count 297 K/mcL (140-400); Red Blood Count 2.94 M/mcL (4.19-5.50); Red Cell Distribution Width 13.8 % (11.5-14.5); White Blood Count 9.4 K/mcL (4.3-11.1)
[2021-05-10 05:29] LABS: Calcium 8.5 mg/dL (8.6-10.3); Potassium 4.4 mEq/L (3.5-5.1)
[2021-05-10] MEDS: Pantoprazole 40 MG VIAL IVP SCH ×2 (06:49→17:43)
[2021-05-10] MEDS: Nicotine 21 MG PATCH.TD24 TD SCH (15:11)
[2021-05-10] MEDS ORDERED: Saline Nasal Spray 44 ML BOTTLE NS PRN (17:43)
[2021-05-10] MEDS ORDERED: Ipratropium/Albuterol Neb 3 ML IH PRN (17:43)
[2021-05-10 19:11] LABS: Bilirubin,Urine Negative (Negative); Blood,Urine Negative (Negative); Clarity,Urine Clear (Clear); Color,Urine Colorless (Yellow); Glucose,Urine (UA) Normal (Normal); Ketones,Urine Negative (Negative); Leukocyte Esterase,Urine Negative (Negative); Nitrite,Urine Negative (Negative); Protein,Urine Negative (Neg-Trace); Specific Gravity,Urine 1.009 (1.010-1.025); Urobilinogen,Urine Normal (Normal)
[2021-05-10] MEDS: Finasteride 5 MG TABLET PO SCH (20:20)
[2021-05-10 21:14] LABS: Hemoglobin 8.5 g/dL (12.9-16.9)
[2021-05-11 01:31] LABS: Basophils % 0.4 %; Eosinophils # 0.4 K/mcL (0.0-0.6); Eosinophils % 4.1 %; Hematocrit 28.4 % (37.5-50.1); Immature Granulocytes % 0.2 % (0-4); Lymphocytes # 2.5 K/mcL (0.6-4.6); Lymphocytes % 26.9 %; Mean Corpuscular HGB Conc 31.7 g/dL (31.6-35.5); Mean Corpuscular Volume 94.7 fL (83.0-100.0); Mean Platelet Volume 10.5 fL (9.4-12.4); Monocytes # 0.8 K/mcL (0.0-1.3); Monocytes % 8.2 %; Neutrophils # 5.6 K/mcL (1.6-8.9); Platelet Count 351 K/mcL (140-400); Red Cell Distribution Width 13.7 % (11.5-14.5); Segmented Neutrophils % 60.2 %; White Blood Count 9.3 K/mcL (4.3-11.1)
[2021-05-11 01:43] LABS: Potassium 4.5 mEq/L (3.5-5.1)
[2021-05-11] MEDS: Pantoprazole 40 MG VIAL IVP SCH (05:38)
[2021-05-11] MEDS ORDERED: Lidocaine -MPF 2% 5 ML VIAL ONE (08:50)
[2021-05-11] MEDS ORDERED: *HR* Succinylcholine 200 MG/10 ML VIAL IVP ONE (08:50)
[2021-05-11] MEDS: Nicotine 21 MG PATCH.TD24 TD SCH (10:10)
[2021-05-11] MEDS: Venlafaxine XR (24 HR) 75 MG CAP.ER.24H PO SCH (10:10)
[2021-05-11] MEDS: Fluticasone Propionate Nasal 50 MCG/SPRAY BOTTLE NS SCH (10:10)
[2021-05-11] MEDS: Apixaban 2.5 MG TABLET PO SCH (20:10)
[2021-05-11] MEDS: Finasteride 5 MG TABLET PO SCH (20:10)
[2021-05-12 07:03] LABS: Calcium 9.2 mg/dL (8.6-10.3); Magnesium 1.9 mg/dL (1.6-2.6); Potassium 4.1 mEq/L (3.5-5.1)
[2021-05-12 07:15] LABS: Basophils # 0.1 K/mcL (0.0-0.2); Basophils % 0.6 %; Eosinophils # 0.2 K/mcL (0.0-0.6); Eosinophils % 2.9 %; Hematocrit 28.2 % (37.5-50.1); Hemoglobin 8.6 g/dL (12.9-16.9); Immature Granulocytes % 0.2 % (0-4); Lymphocytes # 1.7 K/mcL (0.6-4.6); Lymphocytes % 20.6 %; Mean Corpuscular HGB Conc 30.5 g/dL (31.6-35.5); Mean Corpuscular Hemoglobin 28.8 pg (28.0-33.3); Mean Corpuscular Volume 94.3 fL (83.0-100.0); Mean Platelet Volume 10.3 fL (9.4-12.4); Monocytes # 0.8 K/mcL (0.0-1.3); Monocytes % 9.7 %; Neutrophils # 5.3 K/mcL (1.6-8.9); Platelet Count 294 K/mcL (140-400); Red Blood Count 2.99 M/mcL (4.19-5.50); Red Cell Distribution Width 13.7 % (11.5-14.5)
[2021-05-12] MEDS: Venlafaxine XR (24 HR) 75 MG CAP.ER.24H PO SCH (07:55)
[2021-05-12] MEDS: Fluticasone Propionate Nasal 50 MCG/SPRAY BOTTLE NS SCH (07:55)
[2021-05-12] MEDS: Apixaban 2.5 MG TABLET PO SCH (07:55)
[2021-05-12] MEDS: Nicotine 21 MG PATCH.TD24 TD SCH (07:57)
[2021-05-12 10:56] LABS: Influenza A PCR Negative (Negative); Influenza B PCR Negative (Negative); Resp. Syncytial Virus PCR Negative (Negative)
[2021-05-12 10:57] LABS: SARS-CoV-2 by PCR (In House) Negative (Negative)
[2021-05-12 10:58] VITALS: BP 125/64; PULSE 71; TEMP 99; O2SAT 96
== END 2021-05-12 15:33 | DRG 683 ==
LOC: 3ANU → SUATTDRO 19:13
PROVIDERS: ADMIT Internal Medicine; ATTEND Internal Medicine

== ENCOUNTER 2021-10-08 19:07 | Inpatient (IN) ==
[2021-10-09] MEDS ORDERED: Melatonin 3 MG TABLET PO PRN (02:31)
[2021-10-09] MEDS ORDERED: Naloxone 0.4 MG/ML INJ IVP PRN (02:31)
[2021-10-09] MEDS ORDERED: Ondansetron ODT 4 MG TAB.RAPDIS SL PRN (02:31)
[2021-10-09] MEDS: Pantoprazole 40 MG VIAL IVP SCH ×2 (06:13→17:34)
[2021-10-09 07:40] LABS: Basophils # 0.1 K/mcL (0.0-0.2); Basophils % 0.7 %; Eosinophils # 0.5 K/mcL (0.0-0.6); Eosinophils % 6.6 %; Hematocrit 23.6 % (37.5-50.1); Hemoglobin 7.4 g/dL (12.9-16.9); Immature Granulocytes % 0.1 % (0-4); Lymphocytes # 1.3 K/mcL (0.6-4.6); Lymphocytes % 17.8 %; Mean Corpuscular HGB Conc 31.4 g/dL (31.6-35.5); Mean Corpuscular Hemoglobin 29.2 pg (28.0-33.3); Mean Corpuscular Volume 93.3 fL (83.0-100.0); Mean Platelet Volume 10.2 fL (9.4-12.4); Monocytes # 0.6 K/mcL (0.0-1.3); Monocytes % 8.5 %; Neutrophils # 4.7 K/mcL (1.6-8.9); Platelet Count 248 K/mcL (140-400); Red Blood Count 2.53 M/mcL (4.19-5.50); Red Cell Distribution Width 16.8 % (11.5-14.5); Segmented Neutrophils % 66.3 %; White Blood Count 7.1 K/mcL (4.3-11.1)
[2021-10-09 07:51] LABS: Albumin 3.6 g/dL (3.5-5.7); Albumin/Globulin Ratio 1.3 (1.1-2.2); Bilirubin,Total 0.4 mg/dL (0.3-1.0); Calcium 8.8 mg/dL (8.6-10.3); Globulin 2.7 g/dL (2.4-3.5); INR 1.3; Magnesium 1.5 mg/dL (1.6-2.6); Phosphorous 4.9 mg/dL (2.7-4.5); Potassium 4.4 mEq/L (3.5-5.1); Prothrombin Time 14.3 Seconds (9.4-12.1); Total Protein 6.3 g/dL (6.4-8.9)
[2021-10-09] MEDS: Nicotine 14 MG PATCH.TD24 TD SCH (08:03)
[2021-10-09] MEDS: carvediloL 6.25 MG TABLET PO SCH ×2 (08:03→17:34)
[2021-10-09] MEDS: amLODIPine 5 MG TABLET PO SCH (08:03)
[2021-10-09] MEDS: Finasteride 5 MG TABLET PO SCH (08:03)
[2021-10-09] MEDS ORDERED: Venlafaxine XR (24 HR) 75 MG CAP.ER.24H PO SCH (09:00)
[2021-10-09 09:30] LABS: Bilirubin,Urine Negative (Negative); Blood,Urine Negative (Negative); Clarity,Urine Clear (Clear); Color,Urine Colorless (Yellow); Glucose,Urine (UA) Normal (Normal); Ketones,Urine Negative (Negative); Leukocyte Esterase,Urine Negative (Negative); Nitrite,Urine Negative (Negative); Protein,Urine Trace mg/dL (Neg-Trace); Urobilinogen,Urine Normal (Normal)
[2021-10-09 09:43] LABS: Sodium, Urine 68.5 mEq/L
[2021-10-09] MEDS ORDERED: IOPAMIDOL PO ONE (16:03)
[2021-10-09] MEDS: Ipratropium/Albuterol Neb 3 ML IH PRN (16:09)
[2021-10-09 16:34] LABS: Hematocrit 23.8 % (37.5-50.1); Hemoglobin 7.6 g/dL (12.9-16.9)
[2021-10-09] MEDS ORDERED: Iopamidol - 370 500 ML MLS IVP ONE (17:24)
[2021-10-09] MEDS ORDERED: 0.9 % Sodium Chloride 1,000 ML IVC ONE (17:38)
[2021-10-09] MEDS: Mirtazapine 15 MG TABLET PO SCH (20:13)
[2021-10-09 20:17] LABS: Hematocrit 24.7 % (37.5-50.1); Hemoglobin 7.8 g/dL (12.9-16.9)
[2021-10-09] MEDS ORDERED: Gabapentin 300 MG CAPSULE PO SCH (21:00)
[2021-10-10] MEDS: Pantoprazole 40 MG VIAL IVP SCH ×2 (05:48→17:04)
[2021-10-10 07:58] LABS: Albumin 3.5 g/dL (3.5-5.7); Albumin/Globulin Ratio 1.3 (1.1-2.2); Bilirubin,Total 0.3 mg/dL (0.3-1.0); Calcium 8.9 mg/dL (8.6-10.3); Globulin 2.6 g/dL (2.4-3.5); Magnesium 1.8 mg/dL (1.6-2.6); Potassium 4.5 mEq/L (3.5-5.1); Total Protein 6.1 g/dL (6.4-8.9)
[2021-10-10 08:19] LABS: Folate 16.2 ng/mL (3.0-16.0)
[2021-10-10] MEDS: carvediloL 6.25 MG TABLET PO SCH ×2 (08:47→17:04)
[2021-10-10] MEDS: amLODIPine 5 MG TABLET PO SCH (08:47)
[2021-10-10] MEDS: Finasteride 5 MG TABLET PO SCH (08:47)
[2021-10-10] MEDS: Nicotine 14 MG PATCH.TD24 TD SCH (08:47)
[2021-10-10] MEDS: Venlafaxine XR (24 HR) 37.5 MG CAP.ER.24H PO SCH (08:47)
[2021-10-10 09:49] LABS: Uric Acid 8.9 mg/dL (2.3-7.6)
[2021-10-10 10:45] LABS: Basophils # 0.1 K/mcL (0.0-0.2); Basophils % 0.6 %; Eosinophils # 0.4 K/mcL (0.0-0.6); Hematocrit 23.3 % (37.5-50.1); Hemoglobin 7.3 g/dL (12.9-16.9); Immature Granulocytes % 0.1 % (0-4); Lymphocytes % 24.2 %; Mean Corpuscular HGB Conc 31.3 g/dL (31.6-35.5); Mean Corpuscular Hemoglobin 29.1 pg (28.0-33.3); Mean Platelet Volume 10.7 fL (9.4-12.4); Monocytes # 0.8 K/mcL (0.0-1.3); Monocytes % 9.9 %; Neutrophils # 5.1 K/mcL (1.6-8.9); Platelet Count 214 K/mcL (140-400); Red Blood Count 2.51 M/mcL (4.19-5.50); Red Cell Distribution Width 17.1 % (11.5-14.5); Segmented Neutrophils % 60.2 %; White Blood Count 8.4 K/mcL (4.3-11.1)
[2021-10-10 10:46] LABS: Mean Corpuscular Volume 92.8 fL (83.0-100.0)
[2021-10-10 10:47] LABS: Platelet Estimate Normal (Normal)
[2021-10-10] MEDS: Mirtazapine 15 MG TABLET PO SCH (20:29)
[2021-10-11] MEDS: Pantoprazole 40 MG VIAL IVP SCH ×2 (05:13→17:46)
[2021-10-11] MEDS: carvediloL 6.25 MG TABLET PO SCH ×2 (08:06→17:46)
[2021-10-11] MEDS: amLODIPine 5 MG TABLET PO SCH ×2 (08:06→16:34)
[2021-10-11] MEDS: Nicotine 14 MG PATCH.TD24 TD SCH (08:06)
[2021-10-11] MEDS: Finasteride 5 MG TABLET PO SCH (08:06)
[2021-10-11] MEDS: Venlafaxine XR (24 HR) 37.5 MG CAP.ER.24H PO SCH (08:06)
[2021-10-11] MEDS ORDERED: 0.9 % Sodium Chloride 500 ML ONE ×2 (08:58→09:30)
[2021-10-11] MEDS ORDERED: *HR* Midazolam HCl 2 MG/2 ML VIAL IVP ONE ×2 (09:14→09:29)
[2021-10-11] MEDS ORDERED: *HR* FentaNYL (PF) 100 MCG/2 ML VIAL IVP ONE ×2 (09:14→09:29)
[2021-10-11] MEDS ORDERED: Ampicillin/Sulbactam 1,500 MG in 0.9 % Sodium Chloride Mini Bag 100 ML IVPB ONE (09:14)
[2021-10-11] MEDS ORDERED: Iopamidol - 300 50 ML VIAL IVP ONE (10:05)
[2021-10-11] MEDS ORDERED: Acetaminophen 325 MG TABLET PO PRN (12:14)
[2021-10-11] MEDS: *HR* OxyCODONE/APAP 5/325 TABLET PO PRN ×2 (12:32→20:14)
[2021-10-11] MEDS ORDERED: amLODIPine 5 MG TABLET PO ONE (14:03)
[2021-10-11 14:30] LABS: Basophils % 0.5 %; Eosinophils # 0.2 K/mcL (0.0-0.6); Eosinophils % 2.9 %; Hemoglobin 7.6 g/dL (12.9-16.9); Immature Granulocytes % 0.3 % (0-4); Lymphocytes # 1.7 K/mcL (0.6-4.6); Lymphocytes % 22.8 %; Mean Corpuscular HGB Conc 30.4 g/dL (31.6-35.5); Mean Corpuscular Hemoglobin 29.5 pg (28.0-33.3); Mean Corpuscular Volume 96.9 fL (83.0-100.0); Mean Platelet Volume 9.7 fL (9.4-12.4); Monocytes # 0.6 K/mcL (0.0-1.3); Monocytes % 8.1 %; Neutrophils # 4.9 K/mcL (1.6-8.9); Platelet Count 227 K/mcL (140-400); Red Blood Count 2.58 M/mcL (4.19-5.50); Red Cell Distribution Width 16.7 % (11.5-14.5); Segmented Neutrophils % 65.4 %; White Blood Count 7.5 K/mcL (4.3-11.1)
[2021-10-11 14:37] LABS: INR 1.2; Prothrombin Time 13.6 Seconds (9.4-12.1)
[2021-10-11 14:49] LABS: Magnesium 1.8 mg/dL (1.6-2.6); Phosphorous 4.6 mg/dL (2.7-4.5)
[2021-10-11 14:50] LABS: Calcium 9.4 mg/dL (8.6-10.3); Potassium 4.4 mEq/L (3.5-5.1)
[2021-10-11] MEDS ORDERED: Saline Nasal Spray 44 ML BOTTLE NS PRN (15:51)
[2021-10-11 16:54] LABS: Calcium 9.2 mg/dL (8.6-10.3); Potassium 4.2 mEq/L (3.5-5.1)
[2021-10-11] MEDS: Mirtazapine 15 MG TABLET PO SCH (20:10)
[2021-10-11] MEDS: Sennosides/Docusate Sodium TABLET PO SCH (20:10)
[2021-10-12 04:13] LABS: Basophils # 0.1 K/mcL (0.0-0.2); Basophils % 0.6 %; Eosinophils # 0.4 K/mcL (0.0-0.6); Eosinophils % 5.1 %; Hemoglobin 7.2 g/dL (12.9-16.9); Immature Granulocytes % 0.4 % (0-4); Lymphocytes # 2.1 K/mcL (0.6-4.6); Lymphocytes % 26.8 %; Mean Corpuscular HGB Conc 31.3 g/dL (31.6-35.5); Mean Corpuscular Volume 95.8 fL (83.0-100.0); Monocytes # 0.8 K/mcL (0.0-1.3); Monocytes % 10.4 %; Neutrophils # 4.4 K/mcL (1.6-8.9); Platelet Count 208 K/mcL (140-400); Red Cell Distribution Width 16.7 % (11.5-14.5); Segmented Neutrophils % 56.7 %; White Blood Count 7.8 K/mcL (4.3-11.1)
[2021-10-12] MEDS: Ipratropium/Albuterol Neb 3 ML IH PRN (04:24)
[2021-10-12 04:26] LABS: Calcium 8.7 mg/dL (8.6-10.3); Magnesium 1.7 mg/dL (1.6-2.6); Phosphorous 4.5 mg/dL (2.7-4.5); Potassium 4.4 mEq/L (3.5-5.1)
[2021-10-12] MEDS: Pantoprazole 40 MG VIAL IVP SCH ×2 (05:22→17:06)
[2021-10-12] MEDS: Cyanocobalamin (B-12) 1,000 MCG TABLET PO SCH (09:52)
[2021-10-12] MEDS: Finasteride 5 MG TABLET PO SCH (09:52)
[2021-10-12] MEDS: Venlafaxine XR (24 HR) 37.5 MG CAP.ER.24H PO SCH (09:52)
[2021-10-12] MEDS: Nicotine 14 MG PATCH.TD24 TD SCH (09:52)
[2021-10-12] MEDS: Sennosides/Docusate Sodium TABLET PO SCH ×2 (09:52→20:35)
[2021-10-12] MEDS: carvediloL 6.25 MG TABLET PO SCH ×2 (09:58→17:06)
[2021-10-12 15:11] LABS: Lactate Dehydrogenase 117 Units/L (140-271)
[2021-10-12 15:29] LABS: Ferritin 168 ng/mL (20-250)
[2021-10-12] MEDS: *HR* OxyCODONE/APAP 5/325 TABLET PO PRN (17:25)
[2021-10-12] MEDS: Mirtazapine 15 MG TABLET PO SCH (20:35)
[2021-10-13 03:28] LABS: Basophils % 0.5 %; Eosinophils # 0.4 K/mcL (0.0-0.6); Eosinophils % 5.7 %; Hemoglobin 7.4 g/dL (12.9-16.9); Immature Granulocytes % 0.1 % (0-4); Lymphocytes # 2.4 K/mcL (0.6-4.6); Lymphocytes % 30.3 %; Mean Corpuscular HGB Conc 30.8 g/dL (31.6-35.5); Mean Corpuscular Hemoglobin 29.1 pg (28.0-33.3); Mean Corpuscular Volume 94.5 fL (83.0-100.0); Mean Platelet Volume 10.4 fL (9.4-12.4); Monocytes # 0.7 K/mcL (0.0-1.3); Monocytes % 9.3 %; Neutrophils # 4.2 K/mcL (1.6-8.9); Platelet Count 223 K/mcL (140-400); Red Blood Count 2.54 M/mcL (4.19-5.50); Red Cell Distribution Width 16.4 % (11.5-14.5); Segmented Neutrophils % 54.1 %; White Blood Count 7.8 K/mcL (4.3-11.1)
[2021-10-13 03:44] LABS: Calcium 8.2 mg/dL (8.6-10.3); Magnesium 1.4 mg/dL (1.6-2.6); Phosphorous 3.6 mg/dL (2.7-4.5); Potassium 4.1 mEq/L (3.5-5.1)
[2021-10-13] MEDS: Pantoprazole 40 MG VIAL IVP SCH (05:28)
[2021-10-13 09:12] LABS: Kappa Qnt Free Light Chains 127.38 mg/L (3.30-19.40); Lambda Qnt Free Light Chains 57.15 mg/L (5.71-26.30)
[2021-10-13] MEDS: Cyanocobalamin (B-12) 1,000 MCG TABLET PO SCH (09:22)
[2021-10-13] MEDS: amLODIPine 5 MG TABLET PO SCH (09:22)
[2021-10-13] MEDS: carvediloL 6.25 MG TABLET PO SCH ×2 (09:22→17:16)
[2021-10-13] MEDS: Venlafaxine XR (24 HR) 37.5 MG CAP.ER.24H PO SCH (09:22)
[2021-10-13] MEDS: Nicotine 14 MG PATCH.TD24 TD SCH (09:22)
[2021-10-13] MEDS: Sennosides/Docusate Sodium TABLET PO SCH ×2 (09:22→21:09)
[2021-10-13] MEDS: Finasteride 5 MG TABLET PO SCH (09:22)
[2021-10-13 10:32] LABS: ABG Base Excess -2 mEq/L (-2 to 3); ABG HCO3 23 mEq/L (21-27); ABG Oxygen Saturation 96 % (95-98); ABG PCO2 40 mmHg (35-45); ABG PH 7.37 pH Units (7.32-7.45); ABG PO2 85 mmHg (85-104); ABG TCO2 24 mEq/L (20-26)
[2021-10-13] MEDS: 0.9 % Sodium Chloride 1,000 ML IVC SCH (15:15)
[2021-10-13] MEDS: *HR* OxyCODONE/APAP 5/325 TABLET PO PRN (21:09)
[2021-10-13] MEDS: Mirtazapine 15 MG TABLET PO SCH (21:10)
[2021-10-14] MEDS: *HR* OxyCODONE/APAP 5/325 TABLET PO PRN ×3 (04:45→21:31)
[2021-10-14] MEDS: 0.9 % Sodium Chloride 1,000 ML IVC SCH ×2 (05:01→17:53)
[2021-10-14 08:23] LABS: Basophils # 0.1 K/mcL (0.0-0.2); Basophils % 0.7 %; Eosinophils # 0.4 K/mcL (0.0-0.6); Hematocrit 23.3 % (37.5-50.1); Hemoglobin 7.3 g/dL (12.9-16.9); Immature Granulocytes % 0.1 % (0-4); Lymphocytes # 2.2 K/mcL (0.6-4.6); Lymphocytes % 30.7 %; Mean Corpuscular HGB Conc 31.3 g/dL (31.6-35.5); Mean Corpuscular Hemoglobin 29.7 pg (28.0-33.3); Mean Corpuscular Volume 94.7 fL (83.0-100.0); Mean Platelet Volume 10.3 fL (9.4-12.4); Monocytes # 0.8 K/mcL (0.0-1.3); Monocytes % 10.5 %; Neutrophils # 3.7 K/mcL (1.6-8.9); Platelet Count 189 K/mcL (140-400); Red Blood Count 2.46 M/mcL (4.19-5.50); Red Cell Distribution Width 16.2 % (11.5-14.5); White Blood Count 7.1 K/mcL (4.3-11.1)
[2021-10-14] MEDS: Finasteride 5 MG TABLET PO SCH (08:28)
[2021-10-14] MEDS: amLODIPine 5 MG TABLET PO SCH (08:28)
[2021-10-14] MEDS: Sennosides/Docusate Sodium TABLET PO SCH ×2 (08:28→21:31)
[2021-10-14] MEDS: Cyanocobalamin (B-12) 1,000 MCG TABLET PO SCH (08:29)
[2021-10-14] MEDS: carvediloL 6.25 MG TABLET PO SCH ×2 (08:29→17:05)
[2021-10-14] MEDS: Venlafaxine XR (24 HR) 37.5 MG CAP.ER.24H PO SCH (08:29)
[2021-10-14] MEDS: Nicotine 14 MG PATCH.TD24 TD SCH (08:29)
[2021-10-14 08:41] LABS: Calcium 8.4 mg/dL (8.6-10.3); Magnesium 1.5 mg/dL (1.6-2.6); Phosphorous 3.4 mg/dL (2.7-4.5); Potassium 4.1 mEq/L (3.5-5.1)
[2021-10-14] MEDS: Mirtazapine 15 MG TABLET PO SCH (21:31)
[2021-10-15] MEDS: 0.9 % Sodium Chloride 1,000 ML IVC SCH (07:53)
[2021-10-15] MEDS: Nicotine 14 MG PATCH.TD24 TD SCH (08:02)
[2021-10-15] MEDS: Sennosides/Docusate Sodium TABLET PO SCH ×2 (08:03→22:20)
[2021-10-15] MEDS: amLODIPine 5 MG TABLET PO SCH (08:03)
[2021-10-15] MEDS: Cyanocobalamin (B-12) 1,000 MCG TABLET PO SCH (08:03)
[2021-10-15] MEDS: carvediloL 6.25 MG TABLET PO SCH ×2 (08:03→17:25)
[2021-10-15] MEDS: Finasteride 5 MG TABLET PO SCH (08:03)
[2021-10-15] MEDS: Venlafaxine XR (24 HR) 37.5 MG CAP.ER.24H PO SCH (08:03)
[2021-10-15 09:11] LABS: Basophils % 0.5 %; Eosinophils # 0.5 K/mcL (0.0-0.6); Eosinophils % 6.3 %; Hemoglobin 7.6 g/dL (12.9-16.9); Immature Granulocytes % 0.1 % (0-4); Lymphocytes # 2.1 K/mcL (0.6-4.6); Lymphocytes % 27.6 %; Mean Corpuscular HGB Conc 31.7 g/dL (31.6-35.5); Mean Corpuscular Hemoglobin 29.7 pg (28.0-33.3); Mean Corpuscular Volume 93.8 fL (83.0-100.0); Mean Platelet Volume 10.8 fL (9.4-12.4); Monocytes # 0.6 K/mcL (0.0-1.3); Monocytes % 8.3 %; Neutrophils # 4.3 K/mcL (1.6-8.9); Platelet Count 224 K/mcL (140-400); Red Blood Count 2.56 M/mcL (4.19-5.50); Segmented Neutrophils % 57.2 %; White Blood Count 7.5 K/mcL (4.3-11.1)
[2021-10-15 09:23] LABS: Magnesium 1.6 mg/dL (1.6-2.6); Phosphorous 3.1 mg/dL (2.7-4.5)
[2021-10-15 09:25] LABS: Calcium 8.5 mg/dL (8.6-10.3); Potassium 4.1 mEq/L (3.5-5.1)
[2021-10-15] MEDS ORDERED: *HR* FentaNYL (PF) 100 MCG/2 ML VIAL IVP ONE (13:05)
[2021-10-15] MEDS ORDERED: *HR* Midazolam HCl 2 MG/2 ML VIAL IVP ONE (13:06)
[2021-10-15] MEDS: Mirtazapine 15 MG TABLET PO SCH (22:20)
[2021-10-16] MEDS: 0.9 % Sodium Chloride 1,000 ML IVC SCH (02:54)
[2021-10-16 04:54] LABS: Basophils % 0.5 %; Eosinophils # 0.4 K/mcL (0.0-0.6); Eosinophils % 5.6 %; Hematocrit 22.6 % (37.5-50.1); Hemoglobin 7.2 g/dL (12.9-16.9); Immature Granulocytes % 0.3 % (0-4); Lymphocytes # 1.6 K/mcL (0.6-4.6); Lymphocytes % 21.3 %; Mean Corpuscular HGB Conc 31.9 g/dL (31.6-35.5); Mean Corpuscular Hemoglobin 29.5 pg (28.0-33.3); Mean Corpuscular Volume 92.6 fL (83.0-100.0); Mean Platelet Volume 10.1 fL (9.4-12.4); Monocytes # 0.6 K/mcL (0.0-1.3); Monocytes % 8.4 %; Neutrophils # 4.8 K/mcL (1.6-8.9); Platelet Count 211 K/mcL (140-400); Red Blood Count 2.44 M/mcL (4.19-5.50); Segmented Neutrophils % 63.9 %; White Blood Count 7.5 K/mcL (4.3-11.1)
[2021-10-16 05:13] LABS: Calcium 8.4 mg/dL (8.6-10.3); Magnesium 1.5 mg/dL (1.6-2.6); Phosphorous 3.3 mg/dL (2.7-4.5); Potassium 3.9 mEq/L (3.5-5.1)
[2021-10-16] MEDS: *HR* OxyCODONE/APAP 5/325 TABLET PO PRN (05:16)
[2021-10-16] MEDS: carvediloL 6.25 MG TABLET PO SCH (08:48)
[2021-10-16] MEDS: Finasteride 5 MG TABLET PO SCH (08:48)
[2021-10-16] MEDS: Nicotine 14 MG PATCH.TD24 TD SCH (08:48)
[2021-10-16] MEDS: Cyanocobalamin (B-12) 1,000 MCG TABLET PO SCH (08:48)
[2021-10-16] MEDS: Sennosides/Docusate Sodium TABLET PO SCH (08:49)
[2021-10-16] MEDS: Venlafaxine XR (24 HR) 37.5 MG CAP.ER.24H PO SCH (08:49)
[2021-10-16] MEDS: amLODIPine 5 MG TABLET PO SCH (08:49)
[2021-10-16 10:43] VITALS: BP 125/52; PULSE 55; TEMP 98.7; O2SAT 96
[2021-10-16 12:36] LABS: Influenza A PCR Negative (Negative); Influenza B PCR Negative (Negative); Resp. Syncytial Virus PCR Negative (Negative)
[2021-10-16 12:37] LABS: SARS-CoV-2 by PCR (In House) Negative (Negative)
[2021-10-17 01:18] LABS: Alpha 2 Globulin (PEP) 0.75 g/dL (0.48-1.05); Beta Globulin (PEP) 0.65 g/dL (0.48-1.10)
[2021-10-17 05:06] LABS: IFE Reflexed IFE Done; Immunoglobulin A 257 mg/dL (68-408); Immunoglobulin G 1180 mg/dL (768-1632); Immunoglobulin M 49 mg/dL (35-263)
== END 2021-10-16 15:19 | DRG 812 ==
LOC: 3ANU → SUATTDRO 10-09 01:36
PROVIDERS: ADMIT Family Medicine; ATTEND Internal Medicine
PROC: IRLYMPH (2021-10-15 12:00)